=== PATIENT | male | born 1965 | race Caucasian/White ===

== ENCOUNTER → 2022-08-04 | Outpatient (CLI) | payer SELFPAY ==
--- NOTE | 2022-08-04 15:43 | Diagnostic Imaging Report ---
CLINICAL HISTORY: Hypertension. Hypercholesterolemia. Screening. COMPARISON: None. TECHNIQUE: Non-contrast enhanced EKG-gated axial images were obtained with a coned down field of view to assess for coronary calcium. Post processing of the images was performed on an independent work station. CTDI volume 5.86 mGy DLP 82 mGy*cm FINDINGS: Important Information About Your Scan: The following information is based on an analysis of the coronary arteries only. Calcium deposits do not correspond directly to the percentage of narrowing of the arteries. They do correlated directly to the amount of coronary plaque, and to the risk of future coronary disease. The calcium deposits usually begin to form years before any symptoms develop. Early detection and modification of risk factors, such as smoking and cholesterol intake, can slow the progress of coronary artery disease. A low score suggests a low likelihood of coronary artery disease, but does not exclude the possibility of significant coronary artery narrowing. The results should be discussed with your physician, taking into account other risk factors such as age, gender, family history, diabetes, smoking or high cholesterol levels. Should you ever experience chest pain, difficulty breathing, discomfort radiating into your neck or arm, or discomfort combined with lightheadedness, sweating, fainting or nausea, you should seek prompt medical attention. Calcium Score: Agatston units 0 - 0: No identifiable atherosclerotic plaque 1 - 10: Minimal plaque burden 11 - 100: Mild plaque burden 101 - 400: Moderate plaque burden Greater than 401: Extensive plaque burden. Score Summary: Your total calcium score is 249 Agatston units. Ranking Guide: Your score of 249 Agatston units places you in the 76th percentile rank. That means out of a group of people with same gender and similar age as yourself 24 percent will have a higher calcium score than you, as reported in literature. CORONARY AJ-130 Left Main artery (LMA) 162 Left Anterior Descending (LAD) 78.1 Left Circumflex (LCX) 8.74 Right Coronary Artery (RCA) 0 Posterior Descending Artery (PDA) 0 Total 249 Agatston units The visualized portions of the lungs demonstrate no focal nodules or masses. There are no pleural or pericardial effusions. The visualized osseous structures are age appropriate. IMPRESSION: 1. CT coronary calcium score is 249 Agatston units 2. Adoption and maintenance of a healthy lifestyle is recommended for all people. This includes regular appropriate exercise and observance of a proper diet, to ensure balanced nutrition and weight control. 3. Tobacco use should be avoided. 4. Hypercholesterolemia has been linked to coronary atherosclerosis. Ensure strict adherence to NCEP (National Cholesterol Education Panel) cholesterol-lowering guidelines. For primary prevention, these include a target goal for total cholesterol of less than 200 mg/dL, HDL cholesterol of greater than 40 mg/dL, triglycerides of less than 200 mg/dL and LDL cholesterol of less than 100 mg/dL Secondary prevention involves more stringent goals. However, please note that these are general recommendations and as with all such matters, the personal family physician should be consulted regarding recommendations appropriate for the individual. Recommend evaluation and treatment for all the other cardiovascular risk factors. Dictated by: Dictated on workstation # [id number]
== END ==
LOC: RAD 08:30
PROVIDERS: ATTEND Nurse Practitioner Family
DX: E78.00 Pure hypercholesterolemia, unspecified (principal); I25.10 Atherosclerotic heart disease of native coronary artery without angina pectoris; I10 Essential (primary) hypertension; Z72.0 Tobacco use
CPT/HCPCS: 75571

== ENCOUNTER → 2022-11-07 | Outpatient (CLI) | payer OTHER | LOC: CARD 13:56 | PROVIDERS: ATTEND Internal Medicine Cardiovascular Disease | DX: I25.10 Atherosclerotic heart disease of native coronary artery without angina pectoris (principal) | CPT/HCPCS: 93306 ==

== ENCOUNTER → 2022-11-29 | Outpatient (CLI) | payer OTHER ==
[2022-11-30 07:36] VITALS: BP 153/97
--- NOTE | 2022-11-30 07:36 | Cardiology Stress Test Report ---
Stress Test Report Date of Procedure/Referring: Date of Procedure: Nov 29, 2022 PCP Bekah Simmons Aprn Admitting Physician Admitting Physician: Attending Physician: Yolande Chau Pa-C Baseline Heart Rate: 58 Baseline Blood Pressure: Blood Pressure Systolic: 153 Blood Pressure Diastolic: 97 Baseline EKG: Baseline EKG: NSR Summary/Conclusion: Summary: In summary, the patient started exercising with a baseline heart rate, blood pressure and EKG mentioned above Patient was able to exercise for a total of 12 minutes on Gabriele protocol, METs 12.3 Maximum heart rate 142 Maximum blood pressure 242/106 Stress EKG, Minimal nondiagnostic changes Recovery EKG , Return to baseline Conclusion: 1. Good exercise tolerance for a total of 12 minutes on Gabriele protocol, 12.3 METs, achieving 87 percent of maximum expected heart rate 2. Minimal nondiagnostic EKG changes with exercise returned to baseline during recovery 3. Hypertensive response to exercise with peak blood pressure 242/106 return to baseline during recovery 4. Transient episode of ventricular bigeminy noted around minute 9 of exercise resolved spontaneously NIKHIL FITZPATRICK MD Nov 30, 2022 07:36
== END ==
LOC: CARD 13:43
PROVIDERS: ATTEND Physician Assistant
DX: I10 Essential (primary) hypertension (principal)

== ENCOUNTER → 2022-11-29 | Outpatient (CLI) | payer OTHER | LOC: CARD 07:15 | PROVIDERS: ATTEND Internal Medicine Cardiovascular Disease | DX: I10 Essential (primary) hypertension (principal) | CPT/HCPCS: 93017 ==